=== PATIENT | male | born 1980 | race Two or more races ===

== ENCOUNTER 2022-09-12 05:57 | Emergency (ER) | payer MEDICAID, OTHER ==
[~2022-09-12] VITALS: Ht 182.9 cm; Wt 104.3 kg
--- NOTE | 2022-09-12 06:19 | NUR ---
BIBS C/O SI STATED HE TOOK UNKNOWN AMOUNT OF IBUPROFIN, ADDERRAL, Meloxicam. PT PLACED IN A GOWN, BELONGINGS PLACED IN LOCKER, PT PLACED IN BED 15 ON REPEAT CHIEF AND PULSE OX. POISON CONTROL CALLED, WILL MONITOR PT.
--- NOTE | 2022-09-12 06:20 | NUR ---
Barney herron in ED - 09/12/22 at 0628 by CRISTHIANICTOR RICKY C/O SI STATED HE TOOK UNKNOWN AMOUNT OF IBUPROFIN, ADDERROL, NALOXENE. REQUESTING INSPECTOR DIALS.
--- NOTE | 2022-09-12 06:23 | NUR ---
URINE COLLECTED AND SENT TO LAB
--- NOTE | 2022-09-12 06:25 | NUR ---
PATO COLLECTED AND SENT TO LAB
--- NOTE | 2022-09-12 06:25 | NUR ---
Note gopal in ED - 09/12/22 at 0628 by CRISTHIANICTOR RICKY C/O SI STATED HE TOOK UNKNOWN AMOUNT OF IBUPROFIN, ADDERRAL, Meloxicam. PT PLACED IN A GOWN, BELONGINGS PLACED IN LOCKER, PT PLACED IN BED 15 ON SUBWAY CONDUCTOR AND PULSE OX. POISON CONTROL CALLED, WILL MONITOR PT.
[2022-09-12] MEDS ORDERED: FAMOTIDINE (20 MG) 20 MG TABLET ONE (06:59)
[2022-09-12] MEDS ORDERED: LORAZEPAM 1 MG TABLET ONE (06:59)
[2022-09-12] MEDS ORDERED: LORAZEPAM 1 MG TABLET PO ONE (07:00)
[2022-09-12] MEDS ORDERED: FAMOTIDINE (20 MG) 20 MG TABLET PO ONE (07:00)
[2022-09-12 07:15] LABS: BILIRUBIN,URINE NEGATIVE (NEGATIVE); COLOR,URINE OTHER (YELLOW); LEUKOCYTE ESTERASE ,URINE NEGATIVE (NEGATIVE); NITRITE, URINE NEGATIVE (NEGATIVE); PROTEIN,URINE NEGATIVE (NEGATIVE); UGLUCOSE NEGATIVE (NEGATIVE); UROBILINOGEN,URINE 0.2 EU/dL (0.2)
--- NOTE | 2022-09-12 07:15 | NUR ---
Received pt from [facility] PT RESTING AND asleepy respiration spont and easy
[2022-09-12 07:18] LABS: ALANINE AMINOTRANSFERASE 19 U/L (12-78); ALBUMIN 4.6 g/dL (3.4-5.0); ALCOHOL, BLOOD < 3 mg/dL (0-0); ALKALINE PHOSPHATASE 61 U/L (46-116); ASPARTATE AMINOTRANSFERASE 22 U/L (15-37); BILIRUBIN,DIRECT 0.4 mg/dL (0.0-0.2); CALCIUM, SERUM 9.3 mg/dL (8.5-10.1); CARBON DIOXIDE 25 mmol/L (21-32); CHLORIDE 98 mmol/L (98-107); CREATININE 1.1 mg/dL (0.6-1.3); GLUCOSE 97 mg/dL (74-106); POTASSIUM 3.4 mmol/L (3.5-5.1); SODIUM SERUM 138 mmol/L (136-145); TOTAL PROTEIN, SERUM 7.9 g/dL (6.4-8.2); UREA NITROGEN, BLOOD 12 mg/dL (7-18)
[2022-09-12 07:42] LABS: ACETAMINOPHEN < 10 ug/ml (10-30)
[2022-09-12 08:11] LABS: BASOPHILS % (AUTO) 0.4 % (0.0-2.0); EOSINOPHILS % (AUTO) 0.5 % (0.0-6.0); HEMATOCRIT 46 % (39-51); HEMOGLOBIN 15.6 g/dL (13.5-17.5); LYMPHOCYTES # (AUTO) 2.1 K/uL (0.8-4.8); LYMPHOCYTES % (AUTO) 19.1 % (20.0-44.0); MEAN CORPUSCULAR HGB CONC 34 g/dl (31.0-36.0); MEAN CORPUSCULAR VOLUME 89 fL (80-96); MONOCYTES # (AUTO) 1.2 K/uL (0.1-1.30); MONOCYTES % (AUTO) 10.8 % (2.0-12.0); NEUTROPHILS # (AUTO) 7.7 K/uL (1.8-8.9); NEUTROPHILS % (AUTO) 69.2 % (43.0-81.0); PLATELET COUNT (AUTO) 262 K/uL (150-450); RED BLOOD CELL COUNT(AUTO) 5.23 MIL/uL (4.5-6.0); WHITE BLOOD COUNT (AUTO) 11.2 K/uL (4.3-11.0)
--- NOTE | 2022-09-12 09:19 | NUR ---
CALLED COLORIST DYER AND WAS NOTIFIED OF PT STATUS AND WAS TOLD THAT HE HAS AN ETA [id number]
--- NOTE | 2022-09-12 12:12 | NUR ---
Patient discharged to home in stable condition. Written and verbal after care instructions given. Patient verbalizes understanding of instruction.
[2022-09-12 12:13] VITALS: BP 139/94
== END 2022-09-12 12:14 | disposition home or self-care (01) ==
LOC: ER 06:01
DX: T39.312A Poisoning by propionic acid derivatives, intentional self-harm, initial encounter (principal); T43.622A Poisoning by amphetamines, intentional self-harm, initial encounter; T39.392A Poisoning by other nonsteroidal anti-inflammatory drugs [NSAID], intentional self-harm, initial encounter; R00.0 Tachycardia, unspecified; Y92.89 Other specified places as the place of occurrence of the external cause; R45.851 Suicidal ideations; F32.A Depression, unspecified; Z20.822 Contact with and (suspected) exposure to COVID-19
CPT/HCPCS: 99285; 93005; 71045; 85025; 80048; 83690; 80076; 81003; 36415; 84484; 87426; 80143; 80320; 80307; C9803; G0480